=== PATIENT | female | born 1950 | race Caucasian/White ===

== ENCOUNTER 2021-02-06 06:23 | Day surgery (SDC) | payer MEDICARE ==
[2021-02-06] MEDS ORDERED: Sodium Chloride 0.9% 1,000 ML IV SCH (06:30)
[2021-02-06] MEDS ORDERED: Propofol 200 MG/20 ML SDV ONE (07:17)
[2021-02-06] MEDS ORDERED: fentaNYL 100 MCG/2 ML SDV ONE (07:17)
--- NOTE | 2021-02-06 14:28 | OR ---
DATE OF PROCEDURE: 02/06/2021 SURGEON: Abner Lee MD PROCEDURE: Esophagogastroduodenoscopy. FINDINGS: 1. Mild inflammation at GE junction. 2. Gastritis, mild. COMPLICATIONS: None. [employer]IN[employer]: None. ANESTHESIA: MAC. PREOPERATIVE DIAGNOSIS: Epigastric pain. POSTOPERATIVE DIAGNOSIS: Epigastric pain. RISKS: Risks, benefits, alternatives, and limitations including, but not limited to infection, bleeding, perforation, false positives and false negatives were explained to the patient and she wished to proceed. PROCEDURE IN DETAIL: The patient was placed in left lateral decubitus position. EGD scope was introduced and advanced atraumatically to the second part of the duodenum. No evidence of duodenitis or ulcerations noted. No ulcers. No old or new blood. Within the stomach itself, the patient has very mild gastritis. The GE junction showed small tongue of salmon type colored tissue concerning for reflux disease. This was less than 1 cm in size. This was biopsied along with all 4 quadrants using cold biopsy forceps. The air was removed from the stomach. The esophagus was inspected without abnormality. The patient tolerated the procedure well. Abner Lee MD /[id number]
== END 2021-02-06 08:49 | disposition home or self-care (01) ==
LOC: JP.SDS 06:23
PROVIDERS: ATTEND Surgery
DX: K20.90 Esophagitis, unspecified without bleeding (principal); K29.70 Gastritis, unspecified, without bleeding; Z88.0 Allergy status to penicillin
CPT/HCPCS: 43239; 88305; J2704; J3010; J7030

== ENCOUNTER 2022-12-04 05:49 | Day surgery (SDC) | payer MEDICARE ==
[2022-12-04] MEDS ORDERED: Acetaminophen 500 MG Tab PO ONE (06:00)
[2022-12-04] MEDS ORDERED: Lactated Ringers 1,000 ML IV SCH (06:30)
[2022-12-04] MEDS ORDERED: Bupivacaine 0.5%/EPINEPHrine 1:200,000 50 ML MDV ONE (06:47)
[2022-12-04] MEDS ORDERED: Clindamycin Phosphate in D5W 900 MG in Premix Bag 1 BAG IV ONE ×2 (07:00)
[2022-12-04] MEDS ORDERED: Succinylcholine 200 MG/10 ML MDV ONE (10:00)
[2022-12-04] MEDS ORDERED: Ondansetron 4 MG/2 ML SDV ONE (10:00)
[2022-12-04] MEDS ORDERED: Dexamethasone 4 MG/ML SDV ONE (10:00)
[2022-12-04] MEDS ORDERED: fentaNYL 250 MCG/5 ML SDV ONE (10:00)
[2022-12-04] MEDS ORDERED: fentaNYL 100 MCG/2 ML SDV ONE ×2 (10:00→10:14)
[2022-12-04] MEDS ORDERED: Neostigmine Methylsulfate 1 MG/ML 5 ML Syringe ONE (10:00)
[2022-12-04] MEDS ORDERED: Glycopyrrolate 0.2 MG/ML 5 ML MDV ONE (10:00)
[2022-12-04] MEDS ORDERED: Rocuronium 50 MG/5 ML Vial ONE (10:00)
[2022-12-04] MEDS ORDERED: Propofol 200 MG/20 ML SDV ONE (10:00)
[2022-12-04] MEDS ORDERED: Sennosides/Docusate Sodium 50-8.6 MG Tab PO PRN (10:17)
[2022-12-04] MEDS: Acetaminophen/HYDROcodone 325-5 MG Tab PO PRN ×2 (11:58→17:05)
[2022-12-04] MEDS ORDERED: Melatonin 3 MG Tab PO SCH (21:00)
[2022-12-05 04:56] LABS: HEMATOCRIT 33.7 % (34.3-46.0); HEMOGLOBIN 10.7 g/dL (11.2-15.5); MEAN CORPUSCULAR HEMOGLOBIN 27.4 pg (31.6-35.5); MEAN CORPUSCULAR HGB CONC 31.8 g/dL (31.6-35.5); MEAN CORPUSCULAR VOLUME 86.2 fL (81.4-99.0); RED BLOOD CELL COUNT 3.91 M/uL (3.77-5.24); WHITE BLOOD CELL COUNT,WBC 8.2 K/uL (3.2-11.0)
[2022-12-05 05:17] LABS: ANION GAP 7.4 mmol/L (5.0-14.0); CALCIUM 8.7 mg/dL (8.5-10.1); CREATININE 0.8 mg/dL (0.6-1.0); EST CRCL DRUG DOSING (CG) 51.24 mL/min; POTASSIUM,K 4.2 mmol/L (3.6-5.2)
[2022-12-05] MEDS ORDERED: Multivitamins with Iron/Calcium/Folic Acid/Minerals Tab PO SCH (09:00)
[2022-12-05] MEDS ORDERED: Cholecalciferol (Vitamin D3) 25 MCG Tab PO SCH (09:00)
[2022-12-05] MEDS: Acetaminophen/HYDROcodone 325-5 MG Tab PO PRN (09:26)
== END 2022-12-05 10:35 | disposition home or self-care (01) ==
LOC: JP.SDS 05:49 → JP.MS 10:17 → JP.SDS 12-05 10:35
PROVIDERS: ATTEND Student in an Organized Health Care Education/Training Program
DX: K40.20 Bilateral inguinal hernia, without obstruction or gangrene, not specified as recurrent (principal); D17.5 Benign lipomatous neoplasm of intra-abdominal organs; E78.5 Hyperlipidemia, unspecified; I35.0 Nonrheumatic aortic (valve) stenosis; Z79.899 Other long term (current) drug therapy; Z88.0 Allergy status to penicillin; Z98.890 Other specified postprocedural states; Z87.891 Personal history of nicotine dependence; Z86.73 Personal history of transient ischemic attack (TIA), and cerebral infarction without residual deficits
CPT/HCPCS: 36415; 80048; 85027; A9270-GY; C1781; J0330; J1100; J2405; J2704; J2710; J3010; J3490; J7120